=== PATIENT | male | born 1930 | race Caucasian/White ===

== ENCOUNTER 2020-08-04 08:07 | Observation (INO) | payer MEDICARE ==
[2020-07-29 12:44] LABS: BILIRUBIN,URINE NEGATIVE (NEGATIVE); COLOR,URINE YELLOW (YELLOW); GLUCOSE, URINE (UA) NEGATIVE (NEGATIVE); KETONES,URINE NEGATIVE (NEGATIVE); LEUKOCYTE ESTERASE ,URINE LARGE (NEGATIVE); NITRATE,URINE POSITIVE (NEGATIVE); OCCULT BLOOD,URINE SMALL (NEGATIVE); PROTEIN,URINE NEGATIVE (NEGATIVE); UROBILINOGEN,URINE 0.2 mg/dL (0.2-1.0)
[2020-07-29 12:51] LABS: BASOPHILS % (AUTO) 0.6 % (0.0-5.0); EOSINOPHILS % (AUTO) 4.8 % (0.0-8.0); HEMATOCRIT 40.2 % (42-54); LYMPHOCYTES % (AUTO) 27.7 % (21.0-51.0); MEAN CORPUSCULAR HEMOGLOBIN 30.3 pg (27.0-33.0); MEAN CORPUSCULAR HGB CONC 34.6 g/dL (32.0-36.0); MEAN CORPUSCULAR VOLUME 87.6 fL (79-99); NEUTROPHILS % (AUTO) 58.5 % (40.0-77.0); PLATELET COUNT (AUTO) 142 K/uL (130-400); RED BLOOD CELL COUNT(AUTO) 4.59 MIL/uL (4.50-6.20); RED CELL DISTRIBUTION WIDTH 13.5 % (11.0-15.5); WHITE BLOOD COUNT (AUTO) 4.8 K/uL (4.8-10.8)
[2020-07-29 13:02] LABS: POTASSIUM 4.6 mmol/L (3.5-5.1)
[2020-07-29 13:02] LABS: APPEARANCE,URINE SLIGHTLY CLOUDY (CLEAR)
[2020-07-29 13:06] LABS: INR 1.04 (0.85-1.15); PROTHROMBIN TIME 11.3 SEC (9.6-11.6)
[2020-07-29 13:07] LABS: PARTIAL THROMBOPLASTIN TIME 28.5 SEC (26.3-35.5)
[2020-07-29 13:13] LABS: BACTERIA,URINE Moderate /HPF (None Seen)
[2020-07-29 13:14] LABS: SQUAMOUS EPITHELIAL CELL,UR 0-2 /HPF (0-2)
[2020-08-03 10:37] VITALS: BP 142/90
[2020-08-04] VITALS (22 sets, daily range): BP systolic 107–152; BP diastolic 70–97
[~2020-08-04] VITALS: Ht 180.3 cm; Wt 77.5 kg
[~2020-08-04 08:07] MED LIST: FINA5TAB41 PO; LEVO500T89 PO; OMEP20TA2 PO; SULF1TAB89 PO; TAMS-1 PO
[2020-08-04] MEDS ORDERED: LACTATED RINGERS 1000ML 1,000 ML IV ONE (08:51)
[2020-08-04] MEDS ORDERED: ROCURONIUM 10MG/1ML SYR 10 MG/ML ML ONE (09:37)
[2020-08-04] MEDS ORDERED: SUCCINYLCHOLINE 200MG/10ML SYR ONE (09:37)
[2020-08-04] MEDS ORDERED: LIDOCAINE PF 100MG/5ML (2%) SYRINGE 5ML ONE (09:37)
[2020-08-04] MEDS ORDERED: PROPOFOL 10 MG/ML 20ML VIAL IV ONE (09:37)
[2020-08-04] MEDS ORDERED: FENTANYL CITRATE PF 50 MCG/1 ML 2ML VIAL ONE (09:38)
[2020-08-04] MEDS: MEROPENEM 1 GM VIAL IVP SCH ×2 (10:00→10:35)
[2020-08-04] MEDS ORDERED: PHENYLEPHRINE HCL 10 MG/ML 1ML VIAL IV ONE (10:03)
[2020-08-04] MEDS ORDERED: 0.9%NACL 10ML VIAL ONE (10:03)
[2020-08-04] MEDS ORDERED: GLYCOPYRROLATE 1 MG/5 ML SYRINGE ONE ×2 (10:20→11:37)
[2020-08-04] MEDS ORDERED: NEOSTIGMINE 5MG/5ML SYR IV ONE (11:37)
[2020-08-04] MEDS ORDERED: KETOROLAC 30MG VIAL (30MG/ML) ONE (11:38)
[2020-08-04] MEDS ORDERED: ONDANSETRON 4MG INJ IVP PRN (15:00)
[2020-08-04] MEDS ORDERED: APAP-CODEINE 300/30MG TAB PO PRN (15:15)
[2020-08-04] MEDS: BACITRACIN 28.4 GM OINT TP SCH (20:28)
[2020-08-04] MEDS: DOCUSATE SODIUM 100 MG CAP PO SCH (20:28)
[2020-08-04] MEDS ORDERED: VANCOMYCIN KIT 250 ML IV SCH (22:00)
[2020-08-05] VITALS: BP 110/73
[2020-08-05 04:00] VITALS: BP 93/50
[2020-08-05 07:34] VITALS: BP 99/62
[2020-08-05] MEDS: DOCUSATE SODIUM 100 MG CAP PO SCH (10:21)
[2020-08-05] MEDS: BACITRACIN 28.4 GM OINT TP SCH (10:21)
== END 2020-08-05 12:20 | disposition home or self-care (01) ==
LOC: DAH 08:07 → DAHIP 08:08 → 3BH 14:21
PROVIDERS: ADMIT Urology; ATTEND Urology
DX: D29.1 Benign neoplasm of prostate (principal); Z20.822 Contact with and (suspected) exposure to COVID-19; R33.8 Other retention of urine; N13.9 Obstructive and reflux uropathy, unspecified
CPT/HCPCS: 36415; 52648; 71045; 80048; 81001; 85025; 85610; 85730; 87077 ×2; 87088; 87186 ×2; 88305; 93005; 96361 ×2; 96365; 96366 ×2; A4215; A4221; A4222; A4223; A4354; A4358; A4663; A6260; C9803; G0378 ×24; J0330; J1885; J2001; J2185; J2370; J2704; J2710; J3010; J3370; J3490 ×2; J7030; J7120; U0003

== ENCOUNTER → 2021-04-13 | Outpatient (CLI) | payer MEDICARE ==
[~2021-04-13] MED LIST changes: +GADOTERATE MEGLUMINE 10 MMOL/20 ML VIAL IV ONE; -LEVO500T89 PO
== END | disposition home or self-care (01) ==
LOC: RAH 13:49
PROVIDERS: ATTEND Otolaryngology Plastic Surgery within the Head & Neck
DX: G31.9 Degenerative disease of nervous system, unspecified (principal); R42 Dizziness and giddiness; H90.3 Sensorineural hearing loss, bilateral
CPT/HCPCS: 70553; A9575